=== PATIENT | male | born 1950 | race Caucasian/White ===

== ENCOUNTER 2019-07-28 13:06 | Inpatient (IN) ==
[2019-07-28] MEDS ORDERED: SODIUM CHLORIDE 0.9% 500 ML IV SCH (14:45)
[2019-07-28 15:01] LABS: Basophils # (auto) 0.04 K/uL (0-0.2); Basophils % (auto) 0.4 %; Eosinophils # (auto) 0.31 K/uL (0-0.5); Eosinophils % (auto) 2.7 %; Hematocrit (blood only) 43.6 % (42-52); Hemoglobin 14.5 g/dL (14.0-18.0); Immature Granulocytes # (auto) 0.31 K/uL (0.00-0.02); Immature Granulocytes % (auto) 2.7 %; Lymphocytes # (auto) 1.79 K/uL (1.2-3.4); Lymphocytes % (auto) 15.8 %; Mean Corpuscular Hemoglobin 29.8 pg (25-34); Mean Corpuscular Hgb Conc 33.3 g/dL (32-36); Mean Corpuscular Volume 89.7 fL (80-100); Mean Platelet Volume 10.6 fL (7.4-10.4); Monocytes # (auto) 1.25 K/uL (0.11-0.59); Monocytes % (auto) 11.1 %; Neutrophils # (auto) 7.61 K/uL (1.4-6.5); Neutrophils % (auto) 67.3 %; Platelet Count 587 K/uL (130-400); RDW Standard Deviation 51.6 fL (36.4-46.3); Red Blood Count 4.86 M/uL (4.7-6.1); White Blood Count 11.31 K/uL (4.8-10.8)
--- NOTE | 2019-07-28 15:01 | XRay Report ---
SINGLE VIEW CHEST CLINICAL HISTORY: Generalized weakness. FINDINGS: An AP, portable, upright chest radiograph is obtained. No prior studies are available for c omparison at the time of dictation. The examination is degraded by portable technique and patient rot ation. The heart is top normal for projection. Atelectasis is seen at the lung bases. The lungs and pleural spaces are otherwise clear. No pneumothorax is seen. There are healed left-sided rib fracture s. IMPRESSION: No active disease in the chest. ACT 112: Negative or not required by law. Electronically signed by: Sarath Clifford M.D. 07/28/2019 2:59 PM
[2019-07-28 15:21] LABS: Alanine Aminotransferase 22 U/L (12-78); Albumin Level 3.3 gm/dl (3.4-5.0); Aspartate Aminotransferase 16 U/L (15-37); BUN Creatinine Ratio 21.9 (10-20); Blood Urea Nitrogen 60 mg/dl (7-18); Calcium 9.9 mg/dl (8.5-10.1); Carbon Dioxide 24 mmol/L (21-32); Chloride 108 mmol/L (98-107); Creatinine Clr Calc Pharmacy 27.6 ml/min; Est GFR (African American) 26.5; Est GFR (Non-African American) 22.8; Glucose 132 mg/dl (70-99); Potassium 4.3 mmol/L (3.5-5.1); Sodium 141 mmol/L (136-145)
[2019-07-28 15:32] LABS: Albumin Globulin Ratio 0.9 (0.9-2); Alkaline Phosphatase 106 U/L (45-117); Bilirubin,Total 0.4 mg/dl (0.2-1); Globulin 3.8 gm/dl (2.5-4.0); Thyroid Stimulating Hormone 0.995 uIu/ml (0.300-4.500); Total Protein 7.1 gm/dl (6.4-8.2); Troponin I < 0.015 ng/ml (0-0.045)
--- NOTE | 2019-07-28 15:47 | CT Scan Report ---
CT head/brain wo con CLINICAL HISTORY: Acute change in mental status. Confusion. COMPARISON STUDY: No previous studies for comparison. TECHNIQUE: Axial CT of the brain is performed from the vertex to the skull base. IV contrast was not administered for this examination. A dose lowering technique was utilized adhering to the principles of ALARA. CT DOSE: 614.27 mGy.cm FINDINGS: No intra or extra-axial mass lesions are visualized. There is no CT evidence of acute cortical infarc tion. There is no evidence of midline shift. There is no acute hemorrhage. No calvarial fractures ar e visualized. There are patchy white matter hypodensities likely on a small vessel basis. There is no evidence of pathologic ventricular dilatation. There is right maxillary sinus mucosal thickening. IMPRESSION: No acute intracranial findings ACT 112: Negative or not required by law. Electronically signed by: Juan Diego Miller M.D. 07/28/2019 3:45 PM
[2019-07-28 16:01] LABS: Magnesium 2.1 mg/dl (1.8-2.4)
--- NOTE | 2019-07-28 16:57 | History & Physical Report ---
Date of Service July 28, 2019 Assessment & Plan (1) AMS (altered mental status): (2) Dcahv-rv-[id number] kidney injury: This is a 69-year-old male who has significant past medical history of bipolar disorder, T2DM, hypertension, hypothyroidism, CKD stage III, lithium nephropathy, history of seizure disorder, history of alcohol and tobacco abuse, essential thrombocytosis who presents to ED secondary to altered mental status, 24 pound weight loss since 06/08/2019, rising creatinine. In ED patient remained hemodynamically stable and afebrile. Lab work revealed H&H 14.5 and 43.6, WBC 11.31, afebrile, platelet count 587, BUN 60, creatinine 2.75, glucose 132. His troponin was WNL, TSH WNL, LFTs WNL. Albumin low at 3.3. Chest x-ray negative for any acute cardiopulmonary abnormality. CT of head was negative for any acute abnormality but did reveal patchy white matter hypodensities likely on small vessel basis, right maxillary sinus mucosal thickening. In ED he received IV fluid. Pt AMS and Acute on Chronic CKD likely multifactorial given poor po intake, nephrotoxic agents like metformin, possible lactic acidosis from metformin, drug accumulation. He is afebrile and wbc 11k; however infectious etiology not entirely ruled out. admit to med/surg telemetry obtain blood and urine cultures, NH3, RPR, b12, lactic acid IVF 100cc/hr discontinue metformin consult psychiatry pt with hx of seizure d/o - unknown last seizure, low threshold for EEG, neuro consult (3) T2DM (type 2 diabetes mellitus): Last A1c 7.5 05/01/2019 Currently on metformin 1 g twice daily Given patient's chronic renal function at baseline this medication should be further discontinued He was following at [facility] endocrinology and last seen 12/02/2018 It was recommended he take Tradjenta 5 mg daily Lantus/novolog per sliding scale while inpt (4) Bipolar disorder: Patient currently receiving treatment at inpatient psychiatric facility [facility] He has diagnosis of bipolar disorder, unknown if additional psych diagnoses Current regimen of Zyprexa 5 mg twice daily, mirtazapine 22.5 mg at at bedtime As of today 07/28 Ativan 1 mg 3 times daily, Benadryl 50 mg at at bedtime have been discontinued - per the [facility] pt had been receiving this until today consult psychiatry - appreciate their assistance in management continue one to one monitoring (5) HTN (hypertension): blood pressure stable Previously had been on lisinopril and HCTZ but d/c 2/2 to renal fxn Currently off all antihypertensives (6) Hypothyroidism: hx of hypothyroidism per EPIC TSH 0.995 not on any thyroid supplement (7) Essential thrombocytosis: Platelet count 587 Monitor (8) DVT prophylaxis: SQ Heparin Disposition: admit to med/surg telemetry, pt to be discharged back to the [facility] once medically stable Follow up: PCP Dr. Rand upon discharge Pt was seen and examined in collaboration with Dr. Singh, please see addendum History of Present Illness Chief Complaint: Altered mental status, 24 pound weight loss and increasing kidney function. Primary Care Provider: Grant Saez This is a 69-year-old male who has significant past medical history of bipolar disorder, T2DM, hypertension, hypothyroidism, CKD stage III, lithium nephropathy, history of seizure disorder, history of alcohol and tobacco abuse, essential thrombocytosis who presents to ED secondary to altered mental status, 24 pound weight loss since 06/08/2019, rising creatinine. Patient is currently in inpatient psychiatric rehab at the [facility]. He was admitted on 06/03/2019 secondary to being belligerent, agitated, poor self-care while residing at care home. History mostly obtained from nursing staff at psychiatric rehab. Over the past 2 to 3 days patient has been coming increasingly more confused, staggering gait and difficulty walking and very poor p.o. intake. Since 06/08/2019 he has had a 24 pound weight loss given his poor p.o. intake. Of significance he did recently have some psychiatric medication changes as of yesterday. He had been on Ativan 1 mg 3 times a day which was discontinued, Benadryl 50 mg at at bedtime which was discontinued and is Zyprexa was reduced to 5 mg twice a day. Further staff at psychiatric facility noticed continued rise in creatinine and therefore sent for further evaluation. He is currently lying in bed but does not answer questions appropriately. He does deny any recent illness, fever, chills, sweats, lightheadedness, dizziness, chest pain, shortness of breath, nausea, vomiting, diarrhea, change in bowel or urinary habits. Nursing staff at the [facility] noted he has been eliciting a cough but otherwise no acute illness noted. In ED patient remained hemodynamically stable and afebrile. Lab work revealed H&H 14.5 and 43.6, WBC 11.31, afebrile, platelet count 587, BUN 60, creatinine 2.75, glucose 132. His troponin was WNL, TSH WNL, LFTs WNL. Albumin low at 3.3. Chest x-ray negative for any acute cardiopulmonary abnormality. CT of head was negative for any acute abnormality but did reveal patchy white matter hypodensities likely on small vessel basis, right maxillary sinus mucosal thickening. In ED he received IV fluid. Allergies Allergy/AdvReac Type Severity Reaction Status Date / Time haloperidol [From Haldol] Allergy Unknown Unverified 07/28/19 15:25 Home Medications Home Medications Medication Instructions Recorded Confirmed Type acetaminophen 650 mg PO QID PRN 07/28/19 07/28/19 History albuterol sulfate 1 inh INHALATION QID PRN 07/28/19 07/28/19 History chlorpromazine 100 mg PO Q6H PRN 07/28/19 07/28/19 History diphenhydramine HCl [Benadryl] 75 mg PO Q6H PRN 07/28/19 07/28/19 History metformin 1,000 mg PO BID 07/28/19 07/28/19 History mirtazapine 22.5 mg PO HS 07/28/19 07/28/19 History olanzapine 5 mg PO BID 07/28/19 07/28/19 History Past Med/Surg History Medical History Bipolar disorder Chronic kidney disease (CKD), stage III (moderate) Essential thrombocytosis History of alcohol dependence History of seizure disorder History of tobacco abuse HTN (hypertension) Hypothyroidism Caro nephropathy Psychosis T2DM (type 2 diabetes mellitus) Surgical History No significant past surgical history Family History Father Coronary heart disease Stroke Mother Bipolar disorder Social History Preferred Language: Nepali Communication Ability: Impaired Communication Ability Comment: Patient confused Current Living Situation: Other Current Living Situation Comment: Patient resides at care home, currently inpatient psychiatric treatment at [facility] Smoking Status: Former smoker Hx Alcohol Use: Yes Hx Substance Use: Yes Review of Systems Review of Systems: Unobtainable due to mental health condition All systems were reviewed and unremarkable however unreliable given patient's psychiatric history and altered mental status Physical Exam Physical Exam: Constitutional: Unkempt male, lying in bed, restless, vitals as above, NAD, answers questions but not always appropriate or accurate Head: Normocephalic, Atraumatic Eyes: PERRL, conjunctivae normal, anicteric sclera ENMT: external ear and nose normal, oropharynx normal with dry mucous membranes Neck: trachea midline, no thyromegaly normal visual inspection Respiratory: normal respiratory effort, lungs clear to auscultation, no wheeze, rales, rhonchi. Normal insp/exp effort, no accessory muscle use Cardiovascular: RRR, no murmur, no edema Vessels: no JVD or carotid bruit Chest: normal inspection of chest Abdomen: normal bowel sounds, soft, nontender, no hepatosplenomegaly Musculoskeletal: no cyanosis or clubbing, active range of motion to all extremities. He does not participate in strength exercise. Skin: no rashes, warm and dry normal turgor Neurologic: PERRL, EOMI, accommodation nl, no face palsy, no dysarthria CN's II-XI intact bilaterally and moves all extremities Psychiatric: Alert to self and place only, dysthymic affect Lymphatic: no cervical or axillary lymphadenopathy : deferred Results & Data Vital Signs (Past 12 Hours) Vital Signs Temp Pulse Pulse Resp BP BP Pulse Ox 07/28/19 16:00 66 11 L 97 07/28/19 15:30 60 10 L 99 07/28/19 15:00 62 6 L 97 07/28/19 14:45 67 6 L 97 07/28/19 14:41 68 21 114/79 97 07/28/19 14:34 65 11 L 114/79 96 07/28/19 13:23 36.4 C L 82 17 108/76 98 Laboratory Results Short CBC 07/28/19 07/28/19 Range/Units 14:45 14:45 WBC 11.31 H (4.8-10.8) K/uL Hgb 14.5 (14.0-18.0) g/dL Hct 43.6 (42-52) % Plt Count 587 H (130-400) K/uL BUN 60 H (7-18) mg/dl Creatinine 2.75 H (0.6-1.4) mg/dl Glucose 132 H (70-99) mg/dl BMP 07/28/19 14:45 Sodium 141 Potassium 4.3 Chloride 108 H Carbon Dioxide 24 BUN 60 H Creatinine 2.75 H Glucose 132 H Calcium 9.9 Cardiac Enzymes 07/28/19 Range/Units 14:45 Troponin I < 0.015 (0-0.045) ng/ml Liver Function 07/28/19 Range/Units 14:45 Total Bilirubin 0.4 (0.2-1) mg/dl AST 16 (15-37) U/L ALT 22 (12-78) U/L Alkaline Phosphatase 106 (45-117) U/L Albumin 3.3 L (3.4-5.0) gm/dl Diagnostic Findings CXR: IMPRESSION: No active disease in the chest. Head CT: FINDINGS: No intra or extra-axial mass lesions are visualized. There is no CT evidence of acute cortical infarction. There is no evidence of midline shift. There is no acute hemorrhage. No calvarial fractures are visualized. There are patchy white matter hypodensities likely on a small vessel basis. There is no evidence of pathologic ventricular dilatation. There is right maxillary sinus mucosal thickening. Medications Administered Discontinued Medications Sodium Chloride (Nss) 500 mls @ 999 mls/hr IV .Q31M JULISSA Stop: 07/28/19 15:15 Last Infusion: 07/28/19 15:28 Dose: 0 mls/hr Documented by: [id number] Admin: 07/28/19 14:56 Dose: 999 mls/hr Documented by: [id number] ECG Rate (beats per minute): 61 Rhythm: normal sinus Additional Comments: QTC 420ms Code Status & VTE Plan Code Status Full Code VTE Prophylaxis Plan VTE Prophylaxis will be ordered: Yes Supervising Physician Co-Signing Physician Notes I saw this patient with the physician speech pathology assistant, I participated in the history, physical, review of systems, and physical exam. I reviewed the medications with the patient and the physician speech pathology assistant and helped reconcile the medications. I helped take a detailed family and social history as well. I formulated the assessment and plan personally with the physician speech pathology assistant and went over it with the patient. ROS-Poor Historian Physical Exam Gen-AAO x 1, NAD, Afebrile Head-NCAT, EOMI, PERRLA, Anicteric Sclera, No Posterior Pharyngeal Erythema Neck-Supple, No JVD, No Thyromegaly, No Masses, No LAD, No Bruits Lungs-Clear to Auscultation Bilaterally, No Rales, No Rhonchi, No Wheezing, No Crepitus Chest-No S4, +S1, +S2, No S3, No Murmurs, No Rubs, No Gallops, No Ectopy Abdomen-Soft, Bowel Sounds Present, Non Tender, Non Distended, No Hepatomegaly, No Splenomegaly, No Palpable Masses, No Rebound, No Rigidity, No Guarding Musculoskeletal-Full Range of Motion Bilaterally, No CVAT Extremities-No Cyanosis, No Clubbing, No Edema Nuero-Cranial Nerves II-XII grossly intact, Motor WNL, DTRs WNL, Strength WNL, Non Focal Psych-Normal Mood (1) AMS (altered mental status) Altered mental status type: unspecified Qualified Code(s): R41.82 - Altered mental status, unspecified (2) [id number] kidney injury Acute renal failure type: unspecified Chronic kidney disease stage: unspecified stage Qualified Code(s): N17.9 - Acute kidney failure, unspecified; N18.9 - Chronic kidney disease, unspecified
[2019-07-28 17:09] LABS: Appearance Urine Clear (Clear); Bacteria Urine Automated Negative (Negative); Bilirubin Urine Negative (Negative); Blood Urine Negative (Negative); Cast Urine Automated 0 /lpf (0-5); Color Urine Yellow; Epithelial Cell Urine Auto 0-5 /lpf (0-5); Glucose Urine UA Negative (Negative); Ketones Urine Negative (Negative); Leukocyte Esterase Urine Trace (Negative); Nitrite Urine Negative (Negative); Protein Urine Negative (Negative); RBC Urine Automated 0-4 /hpf (0-4); Specific Gravity Urine 1.014 (1.000-1.030); Urobilinogen Urine Negative (Negative)
[2019-07-28 17:27] LABS: Amphetamines+Metham, Urine Neg (Neg); Barbiturates, Urine Neg (Neg); Benzodiazepine, Urine Neg (Neg); Cocaine, Urine Neg (Neg); MDMA (Ecstacy), Urine Neg (Neg); Methadone, Urine Neg (Neg); Opiate, Urine Neg (Neg); Phencyclidine, Urine Neg (Neg)
[2019-07-28] MEDS ORDERED: POLYETHYLENE (MIRALAX) 17 GM PACK PO PRN (17:52)
[2019-07-28] MEDS ORDERED: ONDANSETRON INJ 2 MG/ML 2 ML VIAL IV PRN (17:52)
[2019-07-28] MEDS ORDERED: ACETAMINOPHEN 325 MG TAB PO PRN (17:52)
[2019-07-28] MEDS ORDERED: CARBOHYDRATES FOR HYPOGLYCEMIA PO PRN (17:52)
[2019-07-28] MEDS ORDERED: GLUCOSE 40% GEL 15 GM TUBE PO PRN (17:52)
[2019-07-28] MEDS ORDERED: DEXTROSE 50% 50 ML SYRINGE IV PRN (17:52)
[2019-07-28] MEDS ORDERED: GLUCOSE 10 TABS/TUBE PO PRN (17:52)
[2019-07-28] MEDS ORDERED: GLUCAGON FOR INJ 1 MG VIAL SQ PRN (17:52)
[2019-07-28] MEDS: SODIUM CHLORIDE 0.9% 1000ML 1,000 ML IV SCH (18:29)
[2019-07-28] MEDS ORDERED: INFLUENZA VACCINE HIGH DOSE 65+ 0.5 ML SYR IM ONE (18:30)
[2019-07-28] MEDS: INSULIN ASPART 100 UNITS/ML 3 ML PEN SC SCH ×2 (18:43→21:48)
[2019-07-28] MEDS ORDERED: PNEUMOCOCCAL ADMINISTRATION CHARGE ONE (18:45)
[2019-07-28] MEDS ORDERED: PNEUMOCOCCAL POLYSACCHARIDES 25 MCG/0.5 ML VIAL/SYR IM ONE (18:45)
[2019-07-28] MEDS ORDERED: INFLUENZA ADMINISTRATION CHARGE ONE (18:45)
--- NOTE | 2019-07-28 19:01 | Emergency Department Note ---
Entered by Bin Gonzalez acting as a scribe for Cooper Dempsey MD History of Present Illness General Chief complaint: Weakness Stated complaint: WEAKNESS, SHAKING Time Seen by Provider: 07/28/19 14:32 Source: patient and other ([facility] worker) Limitations: altered mental status History of Present Illness Onset (ago): month(s) (1.5 months) Location: head Pain Consistency: + other (worsening) Current Pain Intensity: 0 Quality: + constant Associated symptoms: + denies other symptoms (abdominal pain); no chest pain, no fever/chills (fevers), no headaches, no nausea/vomiting (vomiting), no shortness of breath and no weakness The patient is a 69 year old male who presents to the Emergency Room with complaints of constant and worsening mental status starting about 1.5 months ago. The patient is from the [facility]. A [facility] employee states the patient has lost 24 pounds in the last 1.5 months. She states the patient has been more confused and been eating much less. She states the patient takes antipsychotic medications. The staff member from the [facility] states that he has had diff iculty walking today which is unusual for him. The patient denies having any pain, headaches, chest pain, SOB, abdominal pain, fevers, vomiting, and feeling weak. HPI is limited secondary to altered mental status. He does answer yes or no questions but it is unclear whether or not these are truthful answers. He at 1 point started talking about eating platelets as well as horse racing. Home Medications Home Medications Medication Instructions Recorded Confirmed Type acetaminophen 650 mg PO QID PRN 07/28/19 07/28/19 History albuterol sulfate 1 inh INHALATION QID PRN 07/28/19 07/28/19 History chlorpromazine 100 mg PO Q6H PRN 07/28/19 07/28/19 History diphenhydramine HCl [Benadryl] 75 mg PO Q6H PRN 07/28/19 07/28/19 History metformin 1,000 mg PO BID 07/28/19 07/28/19 History mirtazapine 22.5 mg PO HS 07/28/19 07/28/19 History olanzapine 5 mg PO BID 07/28/19 07/28/19 History Allergies Allergy/AdvReac Type Severity Reaction Status Date / Time haloperidol [From Haldol] Allergy Unknown Unverified 07/28/19 15:25 Past Med/Surg History Medical History Bipolar disorder Chronic kidney disease (CKD), stage III (moderate) Essential thrombocytosis History of alcohol dependence History of seizure disorder History of tobacco abuse HTN (hypertension) Hypothyroidism [place] nephropathy Psychosis T2DM (type 2 diabetes mellitus) Surgical History No significant past surgical history Family History Father Coronary heart disease Stroke Mother Bipolar disorder Social History Preferred Language: Togolese Communication Ability: Impaired Communication Ability Comment: Patient confused Beliefs That Will Affect Care: None Current Living Situation: Other Current Living Situation Comment: Patient resides at long-term, currently inpatient [facility] Other Information That Helps Us Care for You: No Feels Safe at Home: Yes Smoking Status: Former smoker Hx Alcohol Use: Yes Alcohol type: beer Hx Substance Use: Yes Review of Systems Other (Unobtainable due to altered mental status) Physical Exam Vital Signs Vital Signs - 24 hr 07/28/19 13:23 07/28/19 14:34 07/28/19 14:40 Temperature 36.4 C L Temperature Source Axillary Pulse Rate 82 65 Pulse Rate [Apical] Pulse Rate from SpO2 Sensor 70 Pulse Rhythm [Apical] Respiratory Rate 17 11 L Respiratory Effort / Characteristics Non-Labored Respiratory Depth Normal Blood Pressure 108/76 114/79 Blood Pressure [Right Arm] Blood Pressure Mean 86 86 Blood Pressure Mean [Right Arm] Pulse Oximetry 98 96 Oxygen Delivery Method Room Air Room Air Sepsis Recent Fever Within 48 Hours No Sepsis Action Taken by Nursing No Action Required 07/28/19 14:41 07/28/19 14:45 07/28/19 15:00 Temperature Temperature Source Pulse Rate 67 62 Pulse Rate [Apical] 68 Pulse Rate from SpO2 Sensor 67 62 Pulse Rhythm [Apical] Regular Respiratory Rate 21 6 L 6 L Respiratory Effort / Characteristics Non-Labored Respiratory Depth Normal Blood Pressure Blood Pressure [Right Arm] 114/79 Blood Pressure Mean Blood Pressure Mean [Right Arm] 90 Pulse Oximetry 97 97 97 Oxygen Delivery Method Room Air Sepsis Recent Fever Within 48 Hours Sepsis Action Taken by Nursing 07/28/19 15:30 07/28/19 16:00 Temperature Temperature Source Pulse Rate 60 66 Pulse Rate [Apical] Pulse Rate from SpO2 Sensor 60 62 Pulse Rhythm [Apical] Respiratory Rate 10 L 11 L Respiratory Effort / Characteristics Respiratory Depth Blood Pressure Blood Pressure [Right Arm] Blood Pressure Mean Blood Pressure Mean [Right Arm] Pulse Oximetry 99 97 Oxygen Delivery Method Sepsis Recent Fever Within 48 Hours Sepsis Action Taken by Nursing Constitutional: Vital signs reviewed. Eyes: Pupils are equal round reactive to light. Conjunctiva are noninjected. ENT: Pharynx is clear without erythema or exudate. Mucous membranes are moist. Neck supple without meningeal signs. Respiratory: Clear to auscultation bilaterally. Breath sounds are equal bilaterally. Cardiovascular: Regular rate and rhythm. No rubs or gallops. GI: Soft, nondistended and nontender. Bowel sounds are present. Musculoskeletal: No peripheral edema. No lower extremity tenderness. Integumentary: No cyanosis. Neurological: The patient is awake and alert. He seems confused. He does follow most instructions. Cranial nerves II-XII are intact. Motor is 5 out of 5 all extremities. Sensation is intact to light touch all extremities. Normal speech. No pronator drift. Psychiatric: Unable to assess Course Course 1433: The patient was evaluated in room C6, and a complete history and physical examination were performed. 1541: I reviewed the patient's blood work from the [facility]. He had a creatinine anywhere from 1.94 to 2.2 between June 17 to July 06. It was checked fr equently and would vacillate up and down. The patient has a history of renal insufficiency. 1610: I spoke to Lisa Saez. They are concerned because the patient is not eating or drinking and is staggering when walking. 1612: I discussed the patient's case with Ayala Cruz PA-C. Dr. Singh [facility] Hospitalist, will evaluate the patient for further management Administered Medications Sodium Chloride (Nss 1000ml) 1,000 mls @ 100 mls/hr IV .Q10H [facility] Stop: 08/27/19 17:51 Last Admin: 07/28/19 18:29 Dose: 100 mls/hr Documented by: [id number] Insulin Aspart (Novolog Flexpen) 0 units SC ACHS JULISSA Stop: 08/27/19 20:59 Last Admin: 07/28/19 18:43 Dose: 3 units Documented by: [id number] Cosigned by: [id number] Discontinued Medications Sodium Chloride (Nss) 500 mls @ 999 mls/hr IV .Q31M [facility] Stop: 07/28/19 15:15 Last Infusion: 07/28/19 15:28 Dose: 0 mls/hr Documented by: [id number] Admin: 07/28/19 14:56 Dose: 999 mls/hr Documented by: [id number] Medical Decision Making Differential Diagnosis Differential Diagnosis includes but is not limited to UTI, pneumonia, CVA, ICH, psychosis, and DORY. Medical Records Attestation: I reviewed the patient's medical records. I did perform a limited focused review of portions of the patient's old chart on the electronic medical record. The patient has had no recent pertinent visits to this hospital. Home Medications Current Medication List: was personally reviewed by me Laboratory Data Attestation: I reviewed the patient's lab results. Result diagrams: 07/28/19 14:45 07/28/19 14:45 Lab Results 07/28/19 07/28/19 Range/Units 14:45 14:45 WBC 11.31 H (4.8-10.8) K/uL RBC 4.86 (4.7-6.1) M/uL Hgb 14.5 (14.0-18.0) g/dL Hct 43.6 (42-52) % MCV 89.7 (80-100) fL MCH 29.8 (25-34) pg MCHC 33.3 (32-36) g/dL RDW Std Deviation 51.6 H (36.4-46.3) fL RDW Coeff of Leighann 16.0 H (11.5-14.5) % Plt Count 587 H (130-400) K/uL MPV 10.6 H (7.4-10.4) fL Immature Gran % (Auto) 2.7 % Neut % (Auto) 67.3 % Lymph % (Auto) 15.8 % [place] % (Auto) 11.1 % Eos % (Auto) 2.7 % Baso % (Auto) 0.4 % Immature Gran # (Auto) 0.31 H (0.00-0.02) K/uL Neut # (Auto) 7.61 H (1.4-6.5) K/uL Lymph # (Auto) 1.79 (1.2-3.4) K/uL [place] # (Auto) 1.25 H (0.11-0.59) K/uL Eos # (Auto) 0.31 (0-0.5) K/uL Baso # (Auto) 0.04 (0-0.2) K/uL Sodium 141 (136-145) mmol/L Potassium 4.3 (3.5-5.1) mmol/L Chloride 108 H (98-107) mmol/L Carbon Dioxide 24 (21-32) mmol/L Anion Gap 9.0 (3-11) BUN 60 H (7-18) mg/dl Creatinine 2.75 H (0.6-1.4) mg/dl Est Cr Clr Drug Dosing 27.6 ml/min Est GFR ( Amer) 26.5 Est GFR (Non-Af Amer) 22.8 BUN/Creatinine Ratio 21.9 H (10-20) Glucose 132 H (70-99) mg/dl Calcium 9.9 (8.5-10.1) mg/dl Magnesium 2.1 (1.8-2.4) mg/dl Total Bilirubin 0.4 (0.2-1) mg/dl AST 16 (15-37) U/L ALT 22 (12-78) U/L Alkaline Phosphatase 106 (45-117) U/L Troponin I < 0.015 (0-0.045) ng/ml Total Protein 7.1 (6.4-8.2) gm/dl Albumin 3.3 L (3.4-5.0) gm/dl Globulin 3.8 (2.5-4.0) gm/dl Albumin/Globulin Ratio 0.9 (0.9-2) TSH 0.995 (0.300-4.500) uIu/ml Imaging Data Radiologist's Impression: Radiology results as stated below per my review and the radiologist's interpretation: SINGLE VIEW CHEST CLINICAL HISTORY: Generalized weakness. FINDINGS: An AP, portable, upright chest radiograph is obtained. No prior studies are available for comparison at the time of dictation. The examination is degraded by portable technique and patient rotation. The heart is top normal for projection. Atelectasis is seen at the lung bases. The lungs and pleural spaces are otherwise clear. No pneumothorax is seen. There are healed left-sided rib fractures. IMPRESSION: No active disease in the chest. ACT 112: Negative or not required by law. Electronically signed by: Sarath Clifford M.D. 07/28/2019 2:[address] head/brain wo con CLINICAL HISTORY: Acute change in mental status. Confusion. COMPARISON STUDY: No previous studies for comparison. TECHNIQUE: Axial CT of the brain is performed from the vertex to the skull base. IV contrast was not administered for this examination. A dose lowering technique was utilized adhering to the principles of ALARA. CT DOSE: 614.27 mGy.cm FINDINGS: No intra or extra-axial mass lesions are visualized. There is no CT evidence of acute cortical infarction. There is no evidence of midline shift. There is no acute hemorrhage. No calvarial fractures are visualized. There are patchy white matter hypodensities likely on a small vessel basis. There is no evidence of pathologic ventricular dilatation. There is right maxillary sinus mucosal thickening. IMPRESSION: No acute intracranial findings ACT 112: Negative or not required by law. Electronically signed by: Juan Diego Miller M.D. 07/28/2019 3:45 PM ECG Data Attestation: I personally reviewed and interpreted this ECG as follows: Indication: + altered mental status Rate (beats per minute): 62 Rhythm: + normal sinus ECG Intervals/blocks: no Prolonged QT ECG ST segments: no ST elevation ECG Findings: no PVCs Blood Pressure Blood Pressure Findings: Normal blood pressure Blood Pressure Disposition: further management by hospitalist [facility] Narrative I did evaluate the patient as noted above. Patient is presenting with change in mental status. He does have a history of psychosis but it was felt by the staff at the [facility] that he was acting more strangely and he had difficulty walking. He is also had significant weight loss and has been refusing to eat frequently. He has been taking his medications. I did obtain history from the patient, the staff who came from the [facility] as well as the PA from the [facility], Lisa Chavez, over the telephone. IV access was established. The patient was placed on a continuous manager monitoring. I did order and personally review the patient's 12-lead EKG as described above. This twelve-lead EKG does not show any acute ischemia. I did order and personally reviewed the images of the patient's chest x-ray as described above. Chest x-ray is negative for pneumonia. I did order a urine analysis. He does not have an infection. I did order and review the ankur ent's blood work as noted in the electronic medical record. His white count slightly elevated which is a nonspecific finding. He has thrombocytosis. He is not anemic. BUN and creatinine are elevated. Today his creatinine is 2.75. I did review the blood work from the [facility]. He had creatinines ranging from 1.9-2.2 last month. I did treated with normal saline IV. I did order a CT of the head. I did review the images myself as well as the radiology report as described above. There is no evidence of acute intracranial abnormality. I did discuss the test results with the patient and the staff member. He will be hospitalized for IV fluids and further treatment. I did discuss the case with the hospitalist and watch case polisher. Impression & Plan AMS (altered mental status), Ycwjn-[id number]-wtsieck kidney injury, Ambulatory dysfunc tion Discharge Plan Visit Data *Final* Discharge Date/Time: 07/28/19 17:20 Chief Complaint: Weakness Stated Complaint: WEAKNESS, SHAKING ED Provider: Cooper Dempsey Discharge Problem: AMS (altered mental status), Vdfty-wu-fophade kidney injury, Ambulatory dysfunction Patient Disposition: Admitted As Inpatient Discharge Instructions Interventions: ED Discharge Assessment Last Done: 07/28/19 17:20 Discharge Problem: AMS (altered mental status) Qualifiers: Altered mental status type: unspecified Qualified Code(s): R41.82 - Altered mental status, unspecified Fdmmd-[id number]-uvmhzhr kidney injury Qualifiers: Acute renal failure type: unspecified Chronic kidney disease stage: unspecified stage Qualified Code(s): N17.9 - Acute kidney failure, unspecified The scribe's documentation has been prepared under my direction and personally reviewed by me in its entirety. I confirm that the note above accurately reflects all work, treatment, procedures, and medical decision making performed by me.
[2019-07-28] MEDS: MIRTAZAPINE TAB 15 MG TAB PO SCH (21:47)
[2019-07-28] MEDS: OLANZapine 5 MG TABLET PO SCH (21:47)
[2019-07-28] MEDS: INSULIN GLARGINE SOLOSTAR 100 UNITS/ML 3 ML PEN SC SCH (21:48)
[2019-07-28] MEDS: HEPARIN SOD 5,000 UNIT/0.5 ML VIAL SQ SCH (21:49)
[2019-07-29] MEDS: SODIUM CHLORIDE 0.9% 1000ML 1,000 ML IV SCH ×3 (04:16→23:46)
[2019-07-29] MEDS: HEPARIN SOD 5,000 UNIT/0.5 ML VIAL SQ SCH ×3 (06:09→20:37)
[2019-07-29 06:29] LABS: Hemoglobin 12.6 g/dL (14.0-18.0); Mean Corpuscular Hemoglobin 29.4 pg (25-34); Mean Corpuscular Hgb Conc 33.2 g/dL (32-36); Mean Corpuscular Volume 88.6 fL (80-100); Mean Platelet Volume 10.6 fL (7.4-10.4); Platelet Count 620 K/uL (130-400); RDW Standard Deviation 50.7 fL (36.4-46.3); Red Blood Count 4.29 M/uL (4.7-6.1); White Blood Count 10.57 K/uL (4.8-10.8)
[2019-07-29 07:02] LABS: Albumin Level 2.9 gm/dl (3.4-5.0); BUN Creatinine Ratio 21.4 (10-20); Calcium 9.3 mg/dl (8.5-10.1); Creatinine Clr Calc Pharmacy 30.8 ml/min; Est GFR (Non-African American) 25.9; Potassium 4.5 mmol/L (3.5-5.1)
[2019-07-29 07:06] LABS: Albumin Globulin Ratio 0.8 (0.9-2); Bilirubin,Total 0.3 mg/dl (0.2-1); Globulin 3.5 gm/dl (2.5-4.0); Total Protein 6.4 gm/dl (6.4-8.2)
[2019-07-29 07:22] LABS: Estimated Average Glucose 206 mg/dl; Hemoglobin A1C 8.8 % (4.5-5.6)
[2019-07-29] MEDS: OLANZapine 5 MG TABLET PO SCH ×2 (07:33→20:36)
[2019-07-29] MEDS: INSULIN ASPART 100 UNITS/ML 3 ML PEN SC SCH ×4 (08:39→20:35)
[2019-07-29] MEDS: INSULIN GLARGINE SOLOSTAR 100 UNITS/ML 3 ML PEN SC SCH ×2 (08:39→20:35)
--- NOTE | 2019-07-29 10:23 | Psychiatric Consultation ---
Date of Consultation July 29, 2019 Impression / Recommendations Impression Dr. Deedee Pedro was directly involved in review and discussion of the patient's case and participated in medical decision making regarding treatment recommendations. RECOMMENDATIONS: 07/29/2019 - Pt likely presenting with delirium, cause is likely multifactorial. Pt has numerous medical issues and is also on medications that can contribute to delirium - he presently has numerous risk factors. - At this point can continue schedule olanzapine 5mg BID and mirtazapine 22.5mg - recommending holding medications if patient is overly sedated - Medication lists also suggests use of chlorpromazine 100mg q6h as need - and can be utilized, but recommend only for acute agitation that poses a safety risk to patient or staff - Agree with decision to hold benzodiazepines and diphenhydramine, and suggest refraining from ordering any centrally acting medications as these can also contribute to altered mental status - At this point in time, there is not sufficient information to make additional recommendations regarding his psychotropic medication regimen. Attempts have been made to gather collateral information from the [facility] regarding: reason for admission, admission medication regimen, course of treatment over his 2-month admission, recent medication adjustments, and timeline of reported decompensation. - Pt is to be discharged back to the [facility] at time of medical clearance, as they will be responsible for facilitating his disposition and aftercare planning. Psych History Identifying Data 69-year-old male admitted medically on 07/28/2019 after being transferred to the ED from the [facility] for reports of altered mental status. It is reported that patient has been a inpatient at the [facility] since mid-May 2019. Psychiatric consultation was requested based on his transfer from a psychiatric facility, reported diagnosis of bipolar disorder. Chief Complaint "I'm here to get my platelets straightened out." History of Present Illness Lele Abreu is a 69-year-old male admitted medically on 07/28/2019 after being transferred to the ED from the [facility] for reports of altered mental status. Limited information was sent from the [facility] for review. Current medications r eportedly include olanzapine 5mg BID, mirtazapine 22.5mg qHS, and chlorpromazine 100mg q6h prn. It was reported that lorazepam and diphenhydramine were discontinued within 1-2 days prior to his transfer to the ED. Psychiatric consultation is requested as patient has been psychiatrically hospitalized at the [facility] since mid-May 2019. Reports suggest a diagnosis of bipolar disorder. On initial assessment, patient is found to be sleeping. He does wake to verbal stimuli and provides verbal permission to allow Melonie Osborn PA-C to observe today's encounter. Pt states that he is "tired", and reports he was transferred to the hospital to "get my platelets sorted out." When informed there was concern for confusion leading to his admission, patient was unable to verbalize awareness of this. Pt admits that he was most recently admitted to the [facility], but states he has only been there for "3 weeks." When asked what led to his psychiatric admission, he again states "I needed to get my platelets sorted out." Pt seemed to be falling asleep intermittently during encounter. He was able to participate in limited questions related to a mental status exam. He was unaware of the date, but knew he was in the hospital. Pt believed the current present was "Obama." Pt reached a point in the conversation where he only responded to questions with the answer "to get my platelets sorted out." He denied any acute needs from our service at this time, and was permitted to continue resting. Past Psychiatric History Previous Psych History: Pt unable at this time to provide information regarding his psychiatric history. Hospital documentation suggests a diagnosis of bipolar disorder. Collateral information from the [facility] is required. Previous Psych Admissions: Full history is unknown - patient has been inpatient at the [facility] since midMay 2019. Allergies Allergy/AdvReac Type Severity Reaction Status Date / Time haloperidol [From Haldol] Allergy Unknown Unverified 07/28/19 15:25 Home Medications Home Medications Medication Instructions Recorded Confirmed Type acetaminophen 650 mg PO QID PRN 07/28/19 07/28/19 History albuterol sulfate 1 inh INHALATION QID PRN 07/28/19 07/28/19 History chlorpromazine 100 mg PO Q6H PRN 07/28/19 07/28/19 History diphenhydramine HCl [Benadryl] 75 mg PO Q6H PRN 07/28/19 07/28/19 History metformin 1,000 mg PO BID 07/28/19 07/28/19 History mirtazapine 22.5 mg PO HS 07/28/19 07/28/19 History olanzapine 5 mg PO BID 07/28/19 07/28/19 History Family History Unknown, patient unable to provide information at time of assessment Substance Abuse History Unknown, patient unable to provide information at time of assessment Personal History Living Arrangements: Homeless (Has been admitted at the [facility] for the past 2 months) Patient History Medical History Bipolar disorder Chronic kidney disease (CKD), stage III (moderate) Essential thrombocytosis History of alcohol dependence History of seizure disorder History of tobacco abuse HTN (hypertension) Hypothyroidism [place] nephropathy Psychosis T2DM (type 2 diabetes mellitus) Surgical History No significant past surgical history Family History Father Coronary heart disease Stroke Mother Bipolar disorder Social History Preferred Language: Turkmen Communication Ability: Impaired Communication Ability Comment: Patient confused Beliefs That Will Affect Care: None Current Living Situation: Other Current Living Situation Comment: Patient resides at nursing home, currently inpatient psychiatric treatment at [facility] Other Information That Helps Us Care for You: No Feels Safe at Home: Yes Smoking Status: Former smoker Hx Alcohol Use: Yes Alcohol type: beer Hx Substance Use: Yes Physical Exam Psychiatric: Orientation: oriented to person; + not alert (wakes to verbal stimuli, but falling alseep intermittently during visit), + not oriented to place (knows he is in a hospital, but believes he is in [place]) and + not oriented to time ("It's 1 - 19, I'm not sure of the year") Apperance: appropriately dressed and + disheveled; + inappropriately groomed male appearing older than current age, sleeping soundly prior to encounter. He is appropriately dressed for setting, wearing a hospital gown. He appearing disheveled, unkempt, and unshaven. Eye Contact: + poor eye contact Motor Behavior: no abnormal motor movements (observed while laying in bed) Speech: normal rate/rhythm/volume of speech (though only brief responses to questions, irritable tone) Affect: + irritable affect Thought Process: + concrete thought process Insight: + impaired insight Judgement: + impaired judgement Vital Signs (Past 24 Hours): Last Vital Signs Temp 36.4 C L 07/29/19 06:33 Pulse 73 07/29/19 06:33 Resp 18 07/29/19 06:33 BP 142/93 H 07/29/19 06:33 Pulse Ox 96 07/29/19 06:33 Review of Systems Pt unable to participate in full ROS. He does verbalize that he is tired, but otherwise provides no physical complaints. Results & Data (PSY) Medications Administered Heparin Sodium (Porcine) (Heparin Sodium (Porcine)) 5,000 units SQ Q8 JULISSA Stop: 08/27/19 21:59 Last Admin: 07/29/19 06:09 Dose: Not Given Documented by: [id number] Admin: 07/28/19 21:49 Dose: 5,000 units Documented by: [id number] Cosigned by: [id number] Sodium Chloride (Nss 1000ml) 1,000 mls @ 100 mls/hr IV .Q10H JULISSA Stop: 08/27/19 17:51 Last Admin: 07/29/19 04:16 Dose: 100 mls/hr Documented by: [id number] Infusion: 07/29/19 04:16 Dose: 100 mls/hr Documented by: [id number] Admin: 07/28/19 18:29 Dose: 100 mls/hr Documented by: [id number] Insulin Aspart (Novolog Flexpen) 0 units SC ACHS JULISSA Stop: 08/27/19 20:59 Last Admin: 07/29/19 08:39 Dose: 4 units Documented by: [id number] Cosigned by: [id number] Admin: 07/28/19 21:48 Dose: Not Given Documented by: [id number] Cosigned by: [id number] Admin: 07/28/19 18:43 Dose: 3 units Documented by: [id number] Cosigned by: [id number] Insulin Glargine (Lantus Solostar Pen) 0 - 8 units SC BID JULISSA Stop: 08/27/19 20:59 Last Admin: 07/29/19 08:39 Dose: 4 units Documented by: [id number] Cosigned by: [id number] Admin: 07/28/19 21:48 Dose: 4 units Documented by: [id number] Cosigned by: [id number] Mirtazapine (Remeron) 22.5 mg PO HS JULISSA Stop: 03/13/20 20:59 Last Admin: 07/28/19 21:47 Dose: 22.5 mg Documented by: [id number] Olanzapine (Zyprexa) 5 mg PO BID [facility] Stop: 08/27/19 20:59 Last Admin: 07/29/19 07:33 Dose: 5 mg Documented by: [id number] Admin: 07/28/19 21:47 Dose: 5 mg Documented by: [id number] Coding Level of Care Code 61141 [facility] Intl Hosp Care Lvl 2
--- NOTE | 2019-07-29 10:56 | Hospitalist Progress Note ---
Date of Service July 29, 2019 Assessment & Plan (1) Metabolic encephalopathy: (2) AMS (altered mental status): Possible related to DORY due to dehydration CT head showed no acute intracranial abnormality UDS, UA and ammonia are normal Continue monitor (3) Tzlmn-il-nzmxbtf kidney injury: Mostly due to poor intake/dehydration Creatinine on admission 2.7 Received IVF, creatinine improves to 2.4 today Continue IVF Hold nephrotoxic agents Continue monitor BMP (4) Elevated lactic acid level: Possible related to starvation/dehydration or metformin No signs of infection and afebrile Received IVF Lactate normalized (5) T2DM (type 2 diabetes mellitus): Most recent Hba1c 8.8 (07/29/19) Continue to hold metformin and Will d/c metformin on discharge Will consider Tradjenta 5 mg daily on discharge Lantus/novolog per sliding scale while inpt Will monitor BS (6) Bipolar disorder: Patient currently receiving treatment at inpatient psychiatric facility the [facility] He has diagnosis of bipolar disorder, unknown if additional psych diagnoses Current regimen of Zyprexa 5 mg twice daily, mirtazapine 22.5 mg at at bedtime As of today 07/28 Ativan 1 mg 3 times daily, Benadryl 50 mg at at bedtime have been discontinued - per the [facility] pt had been receiving this until today Psych on board (7) HTN (hypertension): Continue to hold lisinopril and HCTZ ue to DORY Will monitor BP closely (8) Hypothyroidism: hx of hypothyroidism per [facility] TSH 0.995 wnl Not on any thyroid supplement (9) Essential thrombocytosis: Platelet 620 today Monitor (10) DVT prophylaxis: On SQ Heparin CODE STATUS FULL CODE Disposition: Plan to discharge to the [facility] once medically stable Admission and Anticipated Discharge Date Admission Date: July 28, 2019 Subjective Pt was seen and examined Lying in bed with no distress Pt said that he feels weak He denies any chest pain, palpitation, dizziness and SOB Physical Exam Physical Exam: General- No acute distress Head- atraumatic Eyes- PERRL, keeps his eyes closed during exam ENT- oropharynx clear Neck- supple, no JVD Lungs- clear to auscultation Heart- regular rhythm; no murmur Abdomen- normal bowel sounds, soft, nontender Extremities- no calf tenderness Neuro- alert, oriented with place, PERRL, no facial palsy; no dysarthria, follow commands Skin- warm & dry Results & Data ([facility]) Vital Signs (Past 12 Hours) Vital Signs Temp Pulse Pulse Resp BP Pulse Ox 07/29/19 06:33 36.4 C L 73 18 142/93 H 96 07/29/19 03:00 36.7 C 84 16 126/79 96 07/29/19 00:00 66 (1) AMS (altered mental status) Altered mental status type: unspecified Qualified Code(s): R41.82 - Altered mental status, unspecified (2) Vrprc-jz-sukyyrq kidney injury Acute renal failure type: unspecified Chronic kidney disease stage: unspecified stage Qualified Code(s): N17.9 - Acute kidney failure, unspecified; N18.9 - Chronic kidney disease, unspecified
--- NOTE | 2019-07-29 13:09 | Electrocardiogram Report ---
Test Reason : Blood Pressure : / mmHG Vent. Rate : 061 BPM Atrial Rate : 061 BPM P-R Int : 162 ms QRS Dur : 092 ms QT Int : 418 ms P-R-T Axes : 021 004 024 degrees QTc Int : 420 ms Poor data quality, interpretation may be adversely affected Normal sinus rhythm Normal ECG No previous ECGs available Confirmed by Brendan Lo ([id number]) on 07/29/2019 1:09:10 PM Referred By: REFERRED SELF Confirmed By:Brendan Lo
--- NOTE | 2019-07-29 13:11 | Electrocardiogram Report ---
Test Reason : Blood Pressure : / mmHG Vent. Rate : 062 BPM Atrial Rate : 062 BPM P-R Int : 166 ms QRS Dur : 080 ms QT Int : 420 ms P-R-T Axes : 016 005 028 degrees QTc Int : 426 ms Normal sinus rhythm Normal ECG When compared with ECG of 28-JUL-2019 15:09, (unconfirmed) No significant change was found Confirmed by Brendan Lo ([id number]) on 07/29/2019 1:11:13 PM Referred By: REFERRED SELF Confirmed By:Brendan Lo
[2019-07-29] MEDS: MIRTAZAPINE TAB 15 MG TAB PO SCH (20:36)
[2019-07-30] MEDS: HEPARIN SOD 5,000 UNIT/0.5 ML VIAL SQ SCH ×3 (05:12→21:13)
[2019-07-30] MEDS: INSULIN GLARGINE SOLOSTAR 100 UNITS/ML 3 ML PEN SC SCH ×2 (08:30→20:19)
[2019-07-30] MEDS: INSULIN ASPART 100 UNITS/ML 3 ML PEN SC SCH ×4 (08:32→20:19)
[2019-07-30] MEDS: OLANZapine 5 MG TABLET PO SCH ×2 (08:33→20:20)
[2019-07-30 09:50] LABS: BUN Creatinine Ratio 16.5 (10-20); Calcium 9.2 mg/dl (8.5-10.1); Creatinine Clr Calc Pharmacy 35.4 ml/min; Est GFR (African American) 35.4; Est GFR (Non-African American) 30.6; Potassium 4.3 mmol/L (3.5-5.1)
[2019-07-30] MEDS: SODIUM CHLORIDE 0.9% 1000ML 1,000 ML IV SCH (10:22)
--- NOTE | 2019-07-30 18:13 | Hospitalist Progress Note ---
Date of Service July 30, 2019 Assessment & Plan (1) Metabolic encephalopathy: (2) AMS (altered mental status): Possible related to DORY due to dehydration CT head showed no acute intracranial abnormality UDS, UA and ammonia are normal Clinically improves (3) Bwjvo-eo-cxusrae kidney injury: Mostly due to poor intake/dehydration Creatinine on admission 2.7, creatinine baseline btw 1.9 to 2.1 Received IVF, creatinine improves to 2.1 today Will d/c IVF Hold nephrotoxic agents Continue monitor BMP (4) Elevated lactic acid level: Possible related to starvation/dehydration or metformin No signs of infection and afebrile Received IVF Lactate normalized (5) T2DM (type 2 diabetes mellitus): Most recent Hba1c 8.8 (07/29/19) Continue to hold metformin and Will d/c metformin on discharge Will consider Tradjenta 5 mg daily on discharge Lantus/novolog per sliding scale while inpt Will monitor BS (6) Bipolar disorder: Patient currently receiving treatment at inpatient psychiatric facility the [facility] He has diagnosis of bipolar disorder, unknown if additional psych diagnoses Current regimen of Zyprexa 5 mg twice daily, mirtazapine 22.5 mg at at bedtime As of today 07/28 Ativan 1 mg 3 times daily, Benadryl 50 mg at at bedtime have been discontinued - per the [facility] pt had been receiving this until today Psych on board recommended to continue olanzapine 5mg BID and mirtazapine 22.5mg and to continue holding medications if patient is overly sedated (7) HTN (hypertension): Continue to hold lisinopril and HCTZ ue to DORY Will monitor BP closely (8) Hypothyroidism: hx of hypothyroidism per [facility] TSH 0.995 wnl Not on any thyroid supplement (9) Essential thrombocytosis: Platelet 620 today Monitor (10) DVT prophylaxis: On SQ Heparin CODE STATUS FULL CODE Disposition: Plan to discharge to the [facility] tomorrow Admission and Anticipated Discharge Date Admission Date: July 28, 2019 Subjective Pt was seen and examined Lying in bed with no distress Pt looks much better today He was walking with therapy today Denies any chest pain, palpitation, dizziness and SOB Physical Exam Physical Exam: General- No acute distress Head- atraumatic Eyes- PERRL, keeps his eyes closed during exam ENT- oropharynx clear Neck- supple, no JVD Lungs- clear to auscultation Heart- regular rhythm; no murmur Abdomen- normal bowel sounds, soft, nontender Extremities- no calf tenderness Neuro- alert, oriented with place, PERRL, no facial palsy; no dysarthria, follow commands Skin- warm & dry Results & Data ([facility]) Vital Signs (Past 12 Hours) Vital Signs Temp Pulse Pulse Pulse Resp BP BP 07/30/19 15:47 36.0 C L 58 L 18 154/88 H 07/30/19 15:00 65 07/30/19 11:00 36.5 C 67 18 136/91 07/30/19 07:10 73 07/30/19 07:00 36.3 C L 66 18 113/72 Pulse Ox 07/30/19 15:47 100 07/30/19 15:00 07/30/19 11:00 96 07/30/19 07:10 07/30/19 07:00 94 (1) AMS (altered mental status) Altered mental status type: unspecified Qualified Code(s): R41.82 - Altered mental status, unspecified (2) Bkrvq-sk-pkkjwib kidney injury Acute renal failure type: unspecified Chronic kidney disease stage: unspecified stage Qualified Code(s): N17.9 - Acute kidney failure, unspecified; N18.9 - Chronic kidney disease, unspecified
[2019-07-30] MEDS: MIRTAZAPINE TAB 15 MG TAB PO SCH (20:21)
[2019-07-31] MEDS: HEPARIN SOD 5,000 UNIT/0.5 ML VIAL SQ SCH ×2 (06:45→13:56)
[2019-07-31] MEDS: INSULIN ASPART 100 UNITS/ML 3 ML PEN SC SCH ×2 (08:39→12:32)
[2019-07-31] MEDS: INSULIN GLARGINE SOLOSTAR 100 UNITS/ML 3 ML PEN SC SCH (08:39)
[2019-07-31] MEDS: OLANZapine 5 MG TABLET PO SCH (08:40)
--- NOTE | 2019-07-31 14:33 | Discharge Summary ---
Date of Service July 31, 2019 Admission HPI Per Admitting Provider This is a 69-year-old male who has significant past medical history of bipolar disorder, T2DM, hypertension, hypothyroidism, CKD stage III, lithium nephropathy, history of seizure disorder, history of alcohol and tobacco abuse, essential thrombocytosis who presents to ED secondary to altered mental status, 24 pound weight loss since 06/08/2019, rising creatinine. Patient is currently in inpatient psychiatric rehab at the [facility]. He was admitted on 06/03/2019 secondary to being belligerent, agitated, poor self-care while residing at [facility]. History mostly obtained from nursing staff at psychiatric rehab. Over the past 2 to 3 days patient has been coming increasingly more confused, staggering gait and difficulty walking and very poor p.o. intake. Since 06/08/2019 he has had a 24 pound weight loss given his poor p.o. intake. Of significance he did recently have some psychiatric medication changes as of yesterday. He had been on Ativan 1 mg 3 times a day which was discontinued, Benadryl 50 mg at at bedtime which was discontinued and is Zyprexa was reduced to 5 mg twice a day. Further staff at psychiatric facility noticed continued rise in creatinine and therefore sent for further evaluation. He is currently lying in bed but does not answer questions appropriately. He does deny any recent illness, fever, chills, sweats, lightheadedness, dizziness, chest pain, shortness of breath, nausea, vomiting, diarrhea, change in bowel or urinary habits. Nursing staff at the [facility] noted he has been eliciting a cough but otherwise no acute illness noted. In ED patient remained hemodynamically stable and afebrile. Lab work revealed H&H 14.5 and 43.6, WBC 11.31, afebrile, platelet count 587, BUN 60, creatinine 2.75, glucose 132. His troponin was WNL, TSH WNL, LFTs WNL. Albumin low at 3.3. Chest x-ray negative for any acute cardiopulmonary abnormality. CT of head was negative for any acute abnormality but did reveal patchy white matter hypodensities likely on small vessel basis, right maxillary sinus mucosal thickening. In ED he received IV fluid. Admission Exam Per Admitting Provider Constitutional: Unkempt male, lying in bed, restless, vitals as above, NAD, answers questions but not always appropriate or accurate Head: Normocephalic, Atraumatic Eyes: PERRL, conjunctivae normal, anicteric sclera ENMT: external ear and nose normal, oropharynx normal with dry mucous membranes Neck: trachea midline, no thyromegaly normal visual inspection Respiratory: normal respiratory effort, lungs clear to auscultation, no wheeze, rales, rhonchi. Normal insp/exp effort, no accessory muscle use Cardiovascular: RRR, no murmur, no edema Vessels: no JVD or carotid bruit Chest: normal inspection of chest Abdomen: normal bowel sounds, soft, nontender, no hepatosplenomegaly Musculoskeletal: no cyanosis or clubbing, active range of motion to all extremities. He does not participate in strength exercise. Skin: no rashes, warm and dry normal turgor Neurologic: PERRL, EOMI, accommodation nl, no face palsy, no dysarthria CN's II-XI intact bilaterally and moves all extremities Psychiatric: Alert to self and place only, dysthymic affect Lymphatic: no cervical or axillary lymphadenopathy : deferred Principal Diagnosis (1) Metabolic encephalopathy: (2) AMS (altered mental status): (3) Gdgum-ko-dpvdwth kidney injury: (4) Elevated lactic acid level: (5) T2DM (type 2 diabetes mellitus): Discharge Exam General- No acute distress Head- atraumatic Eyes- PERRL, keeps his eyes closed during exam ENT- oropharynx clear Neck- supple, no JVD Lungs- clear to auscultation Heart- regular rhythm; no murmur Abdomen- normal bowel sounds, soft, nontender Extremities- no calf tenderness Neuro- alert, oriented with place, PERRL, no facial palsy; no dysarthria, follow commands Skin- warm & dry Discharge Data Allergies Allergy/AdvReac Type Severity Reaction Status Date / Time haloperidol [From Haldol] Allergy Unknown Unverified 07/28/19 15:25 Consultations 07/28/19 16:13 ED Decision to Admit Stat 07/28/19 17:52 Consult Case Management - Discharge Planning Routine Consult Psychiatry Routine Ordered Studies 07/28/19 14:40 CT head/brain wo con Stat SINGLE VIEW CHEST CLINICAL HISTORY: Generalized weakness. FINDINGS: An AP, portable, upright chest radiograph is obtained. No prior studies are available for comparison at the time of dictation. The examination is degraded by portable technique and patient rotation. The heart is top normal for projection. Atelectasis is seen at the lung bases. The lungs and pleural spaces are otherwise clear. No pneumothorax is seen. There are healed left-sided rib fractures. IMPRESSION: No active disease in the chest. ACT 112: Negative or not required by law. Electronically signed by: Sarath Clifford M.D. 07/28/2019 2:[address] head/brain wo con CLINICAL HISTORY: Acute change in mental status. Confusion. COMPARISON STUDY: No previous studies for comparison. TECHNIQUE: Axial CT of the brain is performed from the vertex to the skull base. IV contrast was not administered for this examination. A dose lowering technique was utilized adhering to the principles of ALARA. CT DOSE: 614.27 mGy.cm FINDINGS: No intra or extra-axial mass lesions are visualized. There is no CT evidence of acute cortical infarction. There is no evidence of midline shift. There is no acute hemorrhage. No calvarial fractures are visualized. There are patchy white matter hypodensities likely on a small vessel basis. There is no evidence of pathologic ventricular dilatation. There is right maxillary sinus mucosal thickening. IMPRESSION: No acute intracranial findings ACT 112: Negative or not required by law. Electronically signed by: Juan Diego Miller M.D. 07/28/2019 3:45 PM Dictated: 07/28/19 1544 Transcribed: 07/28/19 1544 Hospital Course (1) Metabolic encephalopathy: (2) AMS (altered mental status): Possible related to DORY due to dehydration CT head showed no acute intracranial abnormality UDS, UA and ammonia are normal Clinically improves (3) Iqdpr-pz-fqlldar kidney injury: Mostly due to poor intake/dehydration Creatinine on admission 2.7, creatinine baseline btw 1.9 to 2.1 Received IVF, creatinine improves to 2.1 today IVF discontinued Hold nephrotoxic agents Continue monitor BMP (4) Elevated lactic acid level: Possible related to starvation/dehydration or metformin No signs of infection and afebrile Received IVF Lactate normalized (5) T2DM (type 2 diabetes mellitus): Most recent Hba1c 8.8 (07/29/19) Continue to hold metformin and Will d/c metformin on discharge He was following at [facility] endocrinology and last seen 12/02/2018 It was recommended he take Tradjenta 5 mg daily Will consider Tradjenta 5 mg daily on discharge Lantus/novolog per sliding scale while inpt Continue monitor BS Follow up with Endocrinology (6) Bipolar disorder: Patient currently receiving treatment at inpatient psychiatric facility the [facility] He has diagnosis of bipolar disorder, unknown if additional psych diagnoses Current regimen of Zyprexa 5 mg twice daily, mirtazapine 22.5 mg at at bedtime As of today 07/28 Ativan 1 mg 3 times daily, Benadryl 50 mg at at bedtime have been discontinued - per the [facility] pt had been receiving this until today Psych on board recommended to continue olanzapine 5mg BID and mirtazapine 22.5mg and to continue holding medications if patient is overly sedated (7) HTN (hypertension): Continue to hold lisinopril and HCTZ ue to DORY Will monitor BP closely (8) Hypothyroidism: hx of hypothyroidism per [facility] TSH 0.995 wnl Not on any thyroid supplement (9) Essential thrombocytosis: Platelet 620 today Monitor (10) DVT prophylaxis: On SQ Heparin CODE STATUS FULL CODE Disposition: Plan to discharge to the [facility] today Total Time Total Time Spent Total Time Spent (In Minutes): 35 minutes Total Time Includes: Examination of the Patient, Discharge Planning, Medication Reconciliation, Communication With Other Providers and Other Discharge Plan Discharge Items Patient Disposition: Transfer Behavioral Health Fac Reason For Visit: AMS,DORY/CKD Discharge Diagnosis: (1) Metabolic encephalopathy: (2) AMS (altered mental status): (3) Omvmc-hu-vuokroi kidney injury: (4) Elevated lactic acid level: (5) T2DM (type 2 diabetes mellitus): Activity: Resume your previous activity Non-emergency contact: Primary Care Provider and Psychiatrist Call non-emergency contact if: you have any medication questions Follow-up/Referrals: Tyshawn Saezi [Primary Care Provider] - (Not appts made. 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 Continue physical therapy Fall precaution Pending Studies at Discharge: No Stand-Alone Forms: My [facility] [employer] Medications and DC Order Prescriptions: New linagliptin 5 mg tablet 5 mg PO DAILY Qty: 30 RF: 0 Continued olanzapine 5 mg Tablet 5 mg PO BID RF: 0 mirtazapine 15 mg Tablet 22.5 mg PO HS RF: 0 acetaminophen 325 mg Tablet 650 mg PO QID PRN (Reason: Pain) RF: 0 chlorpromazine 100 mg Tablet 100 mg PO Q6H PRN (Reason: Agitation) RF: 0 diphenhydramine HCl [Benadryl] 25 mg Capsule 75 mg PO Q6H PRN (Reason: with thorazine) RF: 0 albuterol sulfate 90 mcg/actuation Hfa Aerosol Inhaler 1 inh INHALATION QID PRN (Reason: sob) RF: 0 Discontinued metformin 500 mg Tablet 1,000 mg PO BID RF: 0 Discharge Orders: Discharge Order (Routine); Ordered 07/31/19 Ordered By: Freida Block/Other Patient Handouts: Diabetes Nursing Home Complications, Diabetes Resources, Diabetes Healthy Meals, Understanding Carbohydrates, Diabetes Exercise Benefits, Diabetes Manage A1C Test Admission Data Admit Date/Time: 07/28/19 16:36 Attending Provider: Freida Fournier Admit Provider: Scout Singh Primary Care Provider: Grant Saez Other Providers: Scout Singh ; Dot Mc
--- NOTE | 2019-08-01 17:01 | Discharge Summary ---
Date of Service August 01, 2019 Admission HPI Per Admitting Provider This is a 69-year-old male who has significant past medical history of bipolar disorder, T2DM, hypertension, hypothyroidism, CKD stage III, lithium nephropathy, history of seizure disorder, history of alcohol and tobacco abuse, essential thrombocytosis who presents to ED secondary to altered mental status, 24 pound weight loss since 06/08/2019, rising creatinine. Patient is currently in inpatient psychiatric rehab at the [facility]. He was admitted on 06/03/2019 secondary to being belligerent, agitated, poor self-care while residing at senior care. History mostly obtained from nursing staff at psychiatric rehab. Over the past 2 to 3 days patient has been coming increasingly more confused, staggering gait and difficulty walking and very poor p.o. intake. Since 06/08/2019 he has had a 24 pound weight loss given his poor p.o. intake. Of significance he did recently have some psychiatric medication changes as of yesterday. He had been on Ativan 1 mg 3 times a day which was discontinued, Benadryl 50 mg at at bedtime which was discontinued and is Zyprexa was reduced to 5 mg twice a day. Further staff at psychiatric facility noticed continued rise in creatinine and therefore sent for further evaluation. He is currently lying in bed but does not answer questions appropriately. He does deny any recent illness, fever, chills, sweats, lightheadedness, dizziness, chest pain, shortness of breath, nausea, vomiting, diarrhea, change in bowel or urinary habits. Nursing staff at the [facility] noted he has been eliciting a cough but otherwise no acute illness noted. In ED patient remained hemodynamically stable and afebrile. Lab work revealed H&H 14.5 and 43.6, WBC 11.31, afebrile, platelet count 587, BUN 60, creatinine 2.75, glucose 132. His troponin was WNL, TSH WNL, LFTs WNL. Albumin low at 3.3. Chest x-ray negative for any acute cardiopulmonary abnormality. CT of head was negative for any acute abnormality but did reveal patchy white matter hypodensities likely on small vessel basis, right maxillary sinus mucosal thickening. In ED he received IV fluid. Discharge Data Allergies Allergy/AdvReac Type Severity Reaction Status Date / Time haloperidol [From Haldol] Allergy Unknown Unverified 07/28/19 15:25 Consultations 07/28/19 16:13 ED Decision to Admit Stat 07/28/19 17:52 Consult Case Management - Discharge Planning Routine Consult Psychiatry Routine Ordered Studies 07/28/19 14:40 CT head/brain wo con Stat Hospital Course (1) Metabolic encephalopathy: (2) AMS (altered mental status): Possible related to DORY due to dehydration CT head showed no acute intracranial abnormality UDS, UA and ammonia are normal Clinically improves (3) Wunjy-ua-lwbhyga kidney injury: Mostly due to poor intake/dehydration Creatinine on admission 2.7, creatinine baseline btw 1.9 to 2.1 Received IVF, creatinine improves to 2.1 today IVF discontinued Hold nephrotoxic agents Continue monitor BMP (4) Elevated lactic acid level: Possible related to starvation/dehydration or metformin No signs of infection and afebrile Received IVF Lactate normalized (5) T2DM (type 2 diabetes mellitus): Most recent Hba1c 8.8 (07/29/19) Continue to hold metformin and Will d/c metformin on discharge He was following at [facility] endocrinology and last seen 12/02/2018 It was recommended he take Tradjenta 5 mg daily Will consider Tradjenta 5 mg daily on discharge Lantus/novolog per sliding scale while inpt Continue monitor BS Follow up with Endocrinology (6) Bipolar disorder: Patient currently receiving treatment at inpatient [facility] He has diagnosis of bipolar disorder, unknown if additional psych diagnoses Current regimen of Zyprexa 5 mg twice daily, mirtazapine 22.5 mg at at bedtime As of today 07/28 Ativan 1 mg 3 times daily, Benadryl 50 mg at at bedtime have been discontinued - per the se pt had been receiving this until today Psych on board recommended to continue olanzapine 5mg BID and mirtazapine 22.5mg and to continue holding medications if patient is overly sedated (7) HTN (hypertension): Continue to hold lisinopril and HCTZ ue to DORY Will monitor BP closely (8) Hypothyroidism: hx of hypothyroidism per [facility] TSH 0.995 wnl Not on any thyroid supplement (9) Essential thrombocytosis: Platelet 620 today Monitor (10) DVT prophylaxis: On SQ Heparin CODE STATUS FULL CODE Disposition: Plan to discharge to the [facility] Discharge Plan Discharge Items Patient Disposition: Transfer Behavioral Health Fac Reason For Visit: AMS,DORY/CKD Discharge Diagnosis: (1) Metabolic encephalopathy: (2) AMS (altered mental status): (3) Wloqf-nj-kftarku kidney injury: (4) Elevated lactic acid level: (5) T2DM (type 2 diabetes mellitus): Activity: Resume your previous activity Non-emergency contact: Primary Care Provider and Psychiatrist Call non-emergency contact if: you have any medication questions Follow-up/Referrals: Grant [facility]z [Primary Care Provider] - (Not appts made. 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 Continue physical therapy Fall precaution Pending Studies at Discharge: No Stand-Alone Forms: My [facility] [employer] Medications and DC Order Prescriptions: New linagliptin 5 mg tablet 5 mg PO DAILY Qty: 30 RF: 0 Continued olanzapine 5 mg Tablet 5 mg PO BID RF: 0 mirtazapine 15 mg Tablet 22.5 mg PO HS RF: 0 acetaminophen 325 mg Tablet 650 mg PO QID PRN (Reason: Pain) RF: 0 chlorpromazine 100 mg Tablet 100 mg PO Q6H PRN (Reason: Agitation) RF: 0 diphenhydramine HCl [Benadryl] 25 mg Capsule 75 mg PO Q6H PRN (Reason: with thorazine) RF: 0 albuterol sulfate 90 mcg/actuation Hfa Aerosol Inhaler 1 inh INHALATION QID PRN (Reason: sob) RF: 0 Discontinued metformin 500 mg Tablet 1,000 mg PO BID RF: 0 Discharge Orders: Discharge Order (Routine); Ordered 07/31/19 Ordered By: Freida Block/Other Patient Handouts: Diabetes Shelter Complications, Diabetes Resources, Diabetes Healthy Meals, Understanding Carbohydrates, Diabetes Exercise Benefits, Diabetes Manage A1C Test Admission Data Admit Date/Time: 07/28/19 16:36 Attending Provider: Freida Fournier Admit Provider: Scout Singh Primary Care Provider: Grant Saez Other Providers: Scout Singh ; Dot Mc Other Interventions: Discharge Summary Assessment (RN) Last Done: 07/31/19 14:36 DC Date/Time DO NOT enter until pt leaves facility: 07/31/19 15:36
== END 2019-07-31 15:36 | DRG 682 ==
LOC: ED 13:06 → 2W 16:36 → SUATTDRO 16:36 → 2W 17:20 → 4W 07-30 20:06